=== PATIENT | male | born 1965 | race Caucasian/White ===

== ENCOUNTER → 2016-04-20 | Outpatient (CLI) | payer OTHER | END | disposition home or self-care (01) | LOC: C.RDSM 14:49 | PROVIDERS: ATTEND Orthopaedic Surgery Sports Medicine | DX: R52 Pain, unspecified (principal) ==

== ENCOUNTER → 2016-06-04 | Day surgery (SDC) | payer OTHER ==
[2016-05-22 09:17] VITALS: Ht 177.8 cm; Wt 72.7 kg
[~2016-06-04] VITALS: Ht 177.8 cm; Wt 72.7 kg
[~2016-06-04] MED LIST: ATROPINE SULFATE 0.1 MG/ML 5ML SYR IV PRN; BUPIVACAINE 0.5 % 5 MG/1 ML MPF 30ML VIAL ONE; DEXAMETHASONE SOD INJ 4 MG/ML VIAL ONE; EpHEDrine SULFATE 50MG/5ML SYR ONE; EpINEphrine INJ 1MG/ML AMP 1 MG/ML AMP ONE; FENTANYL CITRATE INJ 50 MCG/1 ML 2 ML VIAL IV PRN; FENTANYL CITRATE INJ 50 MCG/1 ML 2 ML VIAL ONE; GLYCOPYRROLATE INJ 0.2 MG/ML VIAL ONE; KETOROLAC TROMETHAMINE 30 MG/ML VIAL IV. PRN; LACTATED RINGER'S 1000ML 1,000 ML IV SCH; LIDOCAINE HCL 1% 20 ML VIAL ONE; LIDOCAINE HCL 1% MPF 2 ML VIAL ONE; LIDOCAINE HCL 2% 2 ML VIAL (20MG/ML) ONE; METOCLOPRAMIDE HCL INJ 5 MG/ML 2 ML VIAL IV PRN; MIDAZOLAM HCL 1 MG/ML 2ML VIAL ONE; MoRPHine SULFATE 2 MG/ML CARP IV PRN; NEOSTIGMINE METHYLSULFATE 5 MG/5 ML SYR ONE; ONDANSETRON INJ 2 MG/ML 2 ML VIAL IV PRN; ONDANSETRON INJ 2 MG/ML 2 ML VIAL ONE; OXYCODONE/ACETAMINOPHEN 5-325 TAB PO PRN; PROPOFOL IV EMULSION 10 MG/ML 20 ML VIAL IV ONE; ROCURONIUM BROMIDE 10 MG/ML 5 ML VIAL ONE; ROPIVACAINE 0.5% 5 MG/ML 30 ML VIAL ONE; SODIUM CHLORIDE 0.9% 1000ML 1,000 ML IV SCH
--- NOTE | 2016-06-04 06:46 | History & Physical Bridge - [place] ---
H&P Re-Evaluation Bridge Note: I have examined the patient, reviewed the History & Physical and in the interval since the performance of the History & Physical I have noted the following changes of clinical significance: No changes noted
[2016-06-04] MEDS: CEFAZOLIN 1000MG/55 ML D5W IV SCH ×2 (07:02→07:03)
--- NOTE | 2016-06-04 08:32 | Discharge Instructions-SurgCtr ---
Discharge Instructions Date of Service Jun 04, 2016. Visit Reason for Visit: Right Shoulder Labrum Tear, Biceps Tendonosis, Imp Discharge Discharge Diagnosis / Problem: Right shoulder arthroscopy, extensive debridement, EUA, SHAWANDA Discharge Goals Goal(s): Decrease discomfort, Improve function, Increase independence Activity Recommendations Activity Limitations: as noted below Lifting Limitations: gradually increase as tolerated Exercise/Sports Limitations: gradually increase as tolerated Shower/Bathe: keep incision dry Driving or Machine Use: when cleared by Dr. Verdin Anesthesia . Post Anesthesia Instructions: If you have had General Anesthesia or IV Sedation: * Do not drive today. * Resume driving when surgeon permits. * Do not make important decisions or sign legal documents today. * Call surgeon for: 1. Temperature elevations greater than 101 degrees F. 2. Uncontrollable pain. 3. Excessive bleeding. 4. Persistent nausea and vomiting. 5. Medication intolerance (nausea, vomiting or rash). * For nausea and vomiting use only clear liquids such as: tea, soda, bouillon until nausea subsides, then gradually increase diet as tolerated. * If you have any concerns or questions, call your surgeon's office. If physician is unavailable and it is an emergency, call 911 or go to the nearest emergency room. . Diet Recommendations Home Diet: resume previous diet Pending Studies Studies pending at discharge: no Medical Emergencies . Who to Call and When: Medical Emergencies: If at any time you feel your situation is an emergency, please call 911 immediately. . Non-Emergent Contact Non-Emergency issues call your: Primary Care Provider . . "Provider Documentation" section prepared by William Spaulding. [place] Drug Monitoring Program Search Results: no issues identified
--- NOTE | 2016-06-04 08:40 | [facility] Post Operative Brief Note ---
Immediate Operative Summary Operative Date Jun 04, 2016. Pre-Operative Diagnosis Right Shoulder Labrum Tear, Biceps Tendonosis Impingement Post-Operative Diagnosis Labral Tears, Synovitis, Chondromalacia of Glenoid Procedure(s) Performed Right shoulder arthroscopy, extensive debridement, exam under anesthesia, manipulation under anesthesia Surgeon Dr. Razia Verdin Planner Intern Surgeon(s) Dr. Autumn Berrios Findings same Specimens None Drains none Anesthesia general, block Complication(s) None Disposition Recovery Room / PACU
[2016-06-04 10:20] VITALS: BP 120/77; PULSE 47; TEMP 36.4; O2SAT 99
--- NOTE | 2016-06-04 10:20 | Anesthesia Progress Nt - [facility] ---
Anesthesia Post Op Note Date & Time Jun 04, 2016 at 10:19 Vital Signs Pain Intensity: 0 Vital Signs Past 12 Hours Date Time Temp Pulse Resp B/P Pulse Ox O2 Delivery O2 Flow Rate FiO2 06/04/16 09:53 36.1 48 18 128/84 95 Room Air 06/04/16 09:45 122/83 06/04/16 09:42 49 16 06/04/16 09:42 49 16 100 06/04/16 09:41 36.2 98 Room Air 06/04/16 09:40 117/81 06/04/16 09:37 47 21 100 06/04/16 09:37 47 21 06/04/16 09:36 50 17 06/04/16 09:36 50 17 100 06/04/16 09:35 125/79 06/04/16 09:31 49 12 06/04/16 09:31 49 12 100 06/04/16 09:30 126/79 06/04/16 09:26 46 13 100 06/04/16 09:26 46 13 06/04/16 09:25 122/76 06/04/16 09:24 46 15 06/04/16 09:24 46 15 100 06/04/16 09:20 127/77 06/04/16 09:19 49 19 100 06/04/16 09:19 49 19 06/04/16 09:15 120/77 06/04/16 09:14 50 14 100 06/04/16 09:14 50 14 06/04/16 09:10 121/75 06/04/16 09:10 37.2 60 16 141/79 100 Mask 9 06/04/16 09:09 57 18 06/04/16 09:09 58 18 100 06/04/16 09:08 60 17 100 06/04/16 09:08 60 17 06/04/16 09:07 141/79 06/04/16 07:03 0 06/04/16 07:02 62 06/04/16 07:02 62 22 100 06/04/16 07:00 114/69 06/04/16 06:57 58 7 100 06/04/16 06:57 58 06/04/16 06:55 122/73 06/04/16 06:52 58 06/04/16 06:52 58 0 99 06/04/16 06:50 125/86 06/04/16 06:48 123/76 06/04/16 06:47 0 06/04/16 06:42 0 06/04/16 06:25 36.5 68 16 126/79 99 Room Air Notes Mental Status: alert / awake / arousable, participated in evaluation Pt Amnestic to Procedure: Yes Nausea / Vomiting: adequately controlled Pain: adequately controlled Airway Patency, RR, SpO2: stable & adequate BP & HR: stable & adequate Hydration State: stable & adequate Anesthetic Complications: no major complications apparent
--- NOTE | 2016-06-04 10:46 | [facility] Operative Report ---
Operative Report Operative Date Jun 04, 2016. Pre-Operative Diagnosis Right Shoulder Labrum Tear, Biceps Tendonosis Impingement Post-Operative Diagnosis Labral Tears, Synovitis, Chondromalacia of Glenoid Procedure(s) Performed 1) Right shoulder arthroscopy, extensive debridement. 2) Manipulation under anesthesia. Surgeon Dr. Razia Verdin Wire Brusher Surgeon(s) Dr. Autumn Berrios Estimated Blood Loss 4 cc Findings The Right shoulder was then examined under anesthesia and it exhibited: Forward flexion and abduction to 155; external rotation 30; internal rotation 15. There was no noted instability. Posterior and anterior translation was 1+ and they had no sulcus sign. The diagnostic arthroscopy commenced with the following findings: 1. The biceps anchor was well attached to the glenoid. There was a type I SLAP tear, fraying. 2. The anterior labrum was well attached, again with some fraying from 1-3: 00. 3. The inferior labrum was normal. 4. The inferior pouch showed no loose bodies. 5. The posterior labrum was normal. 6. The articular surface of the glenoid was normal, except for a very small flap at the center. 7. The articular surface of humeral head was normal. 8. The long Head of the Biceps was normal. There was significant synovitis medially, and posterior superiorly. 9. The Subscapularis tendon was normal. There was significant synovitis anteriorly. 10. The Supraspinatus tendon was normal. 11. The Infraspinatus and Teres Minor were normal. 12. The Subacromial space showed significant bursitis. No bony impingement. Following extensive debridement a manipulation under anesthesia was performed. His range of motion is improved exhibiting: Forward flexion and abduction to 175 ; external rotation 45. Specimens None Drains n/a Anesthesia GET + interscalene nerve block Complication(s) None Disposition Recovery Room / PACU (Stable) Implants n/a Indications This is a pleasant 50-year-old male who has been having long-standing right shoulder pain that has failed conservative management. They have MRI and clinical findings suggestive of SLAP tear. After a lengthy discussion regarding their options of conservative versus operative management, they have elected to proceed with surgery. The risks of surgery were discussed and include but not limited to: Infection, bleeding, nerve damage, continued pain, progression of arthritis, stiffness, decreased level of activity, and deep vein thrombosis. The patient understood all of their options and the risks of surgery and would like to proceed. The informed consent was signed. Description of Procedure The patient was taken to the operating room and following administration of her interscalene nerve block and general anesthetic, a multidisciplinary time-out was performed identifying my initials on the right shoulder as the correct and operative limb. The patient was then placed in beach chair position with all of their bony prominences well-padded. They were then prepped and draped in the usual orthopedic sterile fashion. All of the bony landmarks were marked as well as the planned incisions. The planned incisions were injected with a 50:50 mixture of 0.5% Marcaine plain and 1% Lidocaine with Epinephrine for a total of 8 cc. Then using a spinal needle which was placed intra-articularly into the glenohumeral joint and insufflated to 35 cc and there was noted appropriate back flow, an additional 15 cc were placed. The standard posterior portal was made with an 11-blade. Trocar was introduced into the glenohumeral joint in the standard fashion. Using a spinal needle, the anterior portal was placed lateral to the coracoid under direct visualization between the Long Head of the Biceps and Subscapularis. A 7mm cannula was then placed. The intra-articular portion of shoulder was addressed first with debriding any fraying from the labrum. The labrum was probed and found to be intact. The arthroscope had also been removed from the posterior portal and placed anteriorly for better posterior visualization. The significant synovitis was removed with Coolcut. A manipulation under anesthesia was performed in the standard fashion with gentle forward elevation as well as abduction, with noted adhesion being released and improved range of motion to 175. Gentle external rotation was also applied with now improved range of motion of 45. The arthroscope was then placed subacromially. There was bursitis noted. A lateral portal was created under direct visualization with a spinal needle. Once the bursitis was removed, the bursal side of the rotator cuff was noted to be normal. All of the instruments were removed. The portal sites were closed with 3-0 Prolene in a standard fashion. Xeroform was placed overtop followed by 4 x 4's, ABDs, and foam tape. The patient was placed in a sling. The sponge and needle counts were correct. POSTOPERATIVE INSTRUCTIONS: The patient will follow-up with physical therapy in two days. The patient will work aggressively on maintaining the improved range of motion. The patient will wear sling out in public and for comfort only. The patient will follow-up with me in 10 to 15 days. I attest to the content of the Intraoperative Record and any orders documented therein. Any exceptions are noted below.
== END | disposition home or self-care (01) ==
LOC: X.SURG 06:08
PROVIDERS: ATTEND Orthopaedic Surgery Sports Medicine
DX: M25.811 Other specified joint disorders, right shoulder (principal); M94.211 Chondromalacia, right shoulder; M65.811 Other synovitis and tenosynovitis, right shoulder